=== PATIENT | female | born 1975 | race American Indian/Alaskan Native ===

== ENCOUNTER 2021-09-22 04:15 | Inpatient (IN) | payer BC ==
[2021-09-17 13:45] VITALS: BMI 23.2
[2021-09-22] MEDS ORDERED: VASOPRESSIN 20 UNITS/ML VIAL IV ONE (12:33)
[2021-09-22] MEDS ORDERED: HEPARIN NA (PORCINE) 5,000 UNITS/ML 1ML VIAL ONE (12:33)
[2021-09-22] MEDS ORDERED: ROCURONIUM BROMIDE 50 MG/5 ML SYRINGE ONE ×2 (12:38→14:14)
[2021-09-22] MEDS ORDERED: FENTANYL CITRATE/PF 50 MCG/ML VIAL ONE ×9 (12:38→17:07)
[2021-09-22] MEDS ORDERED: MIDAZOLAM HCL 2 MG/2 ML SINGLE DOSE VIAL ONE ×2 (12:38)
[2021-09-22] MEDS ORDERED: PROPOFOL 20 ML ONE (12:38)
[2021-09-22] MEDS ORDERED: BUPIVACAINE HCL/PF 0.25% (2.5MG/ML) 10 ML VIAL ONE (12:44)
[2021-09-22] MEDS ORDERED: BUPIVACAINE LIPOSOME/PF (EXPAREL) 266 MG/20 ML VIAL ONE (12:44)
[2021-09-22] MEDS ORDERED: ceFAZolin SODIUM 1 GM VIAL IVPB ONE ×2 (13:21→13:31)
[2021-09-22] MEDS ORDERED: TRANEXAMIC ACID 1000 MG/10 ML VIAL ONE (13:22)
[2021-09-22] MEDS ORDERED: ceFAZolin SODIUM 1 GM VIAL ONE (13:22)
[2021-09-22] MEDS ORDERED: TRANEXAMIC ACID 1000 MG/10 ML VIAL IVPUSH ONE (13:22)
[2021-09-22] MEDS ORDERED: DEXAMETHASONE SOD PHOSPHATE 4 MG/1 ML VIAL ONE (13:32)
[2021-09-22] MEDS ORDERED: SEVOFLURANE 250 ML BTL ONE (13:51)
[2021-09-22] MEDS ORDERED: DESFLURANE GAS 240 ML BOTTLE IH ONE (13:51)
[2021-09-22] MEDS ORDERED: NEOSTIGMINE METHYLSULFATE 0.5 MG/ML - 10 ML MDV ONE (15:31)
[2021-09-22] MEDS ORDERED: HYDROmorphone HCl 2 MG/ML VIAL ONE (15:37)
[2021-09-22] MEDS ORDERED: ACETAMINOPHEN 325 MG TABLET (FP) PO PRN (15:54)
[2021-09-22] MEDS ORDERED: oxyCODONE HCL 5 MG TABLET PO PRN ×2 (15:54)
[2021-09-22] MEDS ORDERED: DOCUSATE SODIUM 100 MG CAPSULE (FP) PO PRN (15:54)
[2021-09-22] MEDS ORDERED: ONDANSETRON 4 MG/2 ML VIAL IVPUSH PRN ×3 (15:54→16:00)
[2021-09-22] MEDS ORDERED: BISACODYL 5 MG TABLET.DR (FP) PO PRN (15:54)
[2021-09-22] MEDS ORDERED: LACTATED RINGERS SOLUTION 1,000 ML IV SCH (16:00)
[2021-09-22] MEDS ORDERED: PROMETHAZINE HCL 25 MG/1 ML VIAL IVPUSH PRN (16:00)
[2021-09-22] MEDS: IBUPROFEN 800 MG/8 ML IJ IVPB SCH (18:12)
[2021-09-22] MEDS: SIMETHICONE 80 MG TAB.CHEW (FP) PO PRN (21:22)
[2021-09-23] MEDS: IBUPROFEN 800 MG/8 ML IJ IVPB SCH ×2 (00:08→08:24)
[2021-09-23] MEDS ORDERED: CHOLECALCIFEROL (VIT D3) 5000 UNITS (125 MCG) CAP PO SCH (10:00)
[2021-09-23 10:06] LABS: HEMATOCRIT 32.2 % (32.4-45.2); HEMOGLOBIN 10.2 GM/dL (10.7-15.3); MCH 27.2 pg (25.7-33.7); MCHC 31.8 g/dl (32.0-36.0); MEAN CELL VOLUME 85.3 fl (80-96); PLATELET COUNT 227 10^3/uL (134-434); RBC 3.77 M/mm3 (3.60-5.2); RDW 15.1 % (11.6-15.6); WHITE BLOOD COUNT 11.9 K/mm3 (4.0-10.0)
[2021-09-23 10:40] LABS: BLOOD UREA NITROGEN 10.2 mg/dL (7-18)
[2021-09-23 10:43] LABS: CREATININE 0.9 mg/dL (0.55-1.3)
[2021-09-23 15:02] VITALS: BP 121/71; PULSE 71; TEMP 98.1
[2021-09-23] MEDS ORDERED: IBUPROFEN 600 MG TABLET (FP) PO SCH (18:00)
[2021-09-23] MEDS: SIMETHICONE 80 MG TAB.CHEW (FP) PO PRN (18:34)
== END 2021-09-23 18:39 | disposition home or self-care (01) | DRG 743 ==
LOC: JASU-SURG 04:15 → EDSTATUS 08:00 → J2C 15:54 → J3W 18:00
PROVIDERS: ADMIT Specialist; ATTEND Specialist
PROC: 0U590ZZ Destruction of Uterus, Open Approach (ICD-10-PCS; 2021-09-22)
PROC: 0UN90ZZ Release Uterus, Open Approach (ICD-10-PCS; principal; 2021-09-22 10:45)
DX: D25.9 Leiomyoma of uterus, unspecified (principal); N73.6 Female pelvic peritoneal adhesions (postinfective); N92.0 Excessive and frequent menstruation with regular cycle; R10.2 Pelvic and perineal pain
CPT/HCPCS: 36415; 80048; 81025; 85027; 88305-TC; 94010; 94760; J1644